=== PATIENT | female | born 1985 | race Caucasian/White ===

== ENCOUNTER 2019-04-13 11:04 | Emergency (ER) | payer MEDICAID ==
[2019-04-13] MEDS ORDERED: Cyclobenzaprine TAB* 10 MG PO ONE (11:34)
[2019-04-13] MEDS ORDERED: Ibuprofen TAB* 600 MG PO ONE (11:34)
--- NOTE | 2019-04-13 11:36 | ED ---
Upper Extremity Pain - HPI Summary HPI Summary: 33-year-old female presents with left shoulder pain for the past couple years. She states that she was seeing an orthopedist in [place] and had a bunch testing done so she knows she has a pinched nerve and a torn rotator cuff. she was getting steroid injections every 6 months. States that she moved into the area and does not currently have an orthopedist. She states she has not been taking anything for the pain. States she was previously on Percocet and ibuprofen. She denies any new injury. She has occasionally numbness and tingling down her left arm that is not new. She denies any recent change in her symptoms. - History of Current Complaint Chief Complaint: EDSmary bethlderCGuru Stated Complaint: SHOULER PAIN Time Seen by Provider: 04/13/19 11:26 - Allergies/Home Medications Allergies/Adverse Reactions: Allergies Allergy/AdvReac Type Severity Reaction Status Date / Time No Known Allergies Allergy Verified 04/13/19 11:10 PMH/Surg Hx/FS Hx/Imm Hx Endocrine/Hematology History: Denies: Hx Anticoagulant Therapy Respiratory History: Denies: Hx Asthma Infectious Disease History: No Infectious Disease History: Denies: Traveled Outside the [place] in Last 30 Days - Family History Known Family History: Positive: Non-Contributory - Social History Alcohol Use: Occasionally Substance Use Type: Reports: None Smoking Status (MU): Heavy Every Day Tobacco Smoker Review of Systems Negative: Fever Negative: Chest Pain Negative: Shortness Of Breath Positive: Myalgia - left shoulder pain All Other Systems Reviewed And Are Negative: Yes Physical Exam Triage Information Reviewed: Yes Vital Signs On Initial Exam: Initial Vitals Temp Pulse Resp BP Pulse Ox 97.8 F 78 16 136/94 98 04/13/19 11:08 04/13/19 11:08 04/13/19 11:08 04/13/19 11:08 04/13/19 11:08 Vital Signs Reviewed: Yes Appearance: Positive: Well-Appearing Skin: Positive: Warm, Dry Head/Face: Positive: Normal Head/Face Inspection Eyes: Positive: Normal, Conjunctiva Clear ENT: Positive: Pharynx normal Respiratory/Lung Sounds: Positive: Clear to Auscultation, Breath Sounds Present Cardiovascular: Positive: Normal, RRR Musculoskeletal: Positive: Limited @ - able to raise shoulder to 90 but unable to lift left shoulder above 90, unable to bring arm across back, Other - good pulses, tenderness over left shoulder Neurological: Positive: Normal Psychiatric: Positive: Normal Procedures - Sedation Patient Received Moderate/Deep Sedation with Procedure: No Diagnostics - Vital Signs Vital Signs Temp Pulse Resp BP Pulse Ox 04/13/19 11:08 97.8 F 78 16 136/94 98 - Laboratory Lab Statement: Any lab studies that have been ordered have been reviewed, and results considered in the medical decision making process. Re-Evaluation - Re-Evaluation First Eval Re-Evaluation Time: 11:59 Comment: patient requesting pain meds which explained can not write for chronic pain Course/Dx - Course Course Of Treatment: 33-year-old female presents with left shoulder pain for the past couple years. She states that she was seeing an orthopedist in [place] and had a bunch testing done so she knows she has a pinched nerve and a torn rotator cuff. she was getting steroid injections every 6 months. States that she moved into the area and does not currently have an orthopedist. She states she has not been taking anything for the pain. States she was previously on Percocet and ibuprofen. She denies any new injury. She has occasionally numbness and tingling down her left arm that is not new. She denies any recent change in her symptoms. On exam has good strength in her arm. Tenderness over her left shoulder. Neurovascular intact. unable to raise arm above 90 or behind her back. Will prescribe Flexeril and ibuprofen for pain. gave referral to orthopedic. Patient understands and agrees the plan. - Diagnoses Differential Diagnosis/HQI/PQRI: Positive: Fracture (Closed), Strain, Sprain Provider Diagnoses: Left shoulder pain Discharge ED - Sign-Out/Discharge Documenting (check all that apply): Patient Departure - Discharge Plan Condition: Good Disposition: HOME Prescriptions: Cyclobenzaprine TAB* [Flexeril 10 MG TAB*] 10 mg PO TID PRN #21 tab PRN Reason: Pain - Severe Ibuprofen TAB* [Motrin TAB* 600 MG] 600 mg PO Q6H PRN #30 tab PRN Reason: Pain - Moderate Patient Education Materials: Shoulder Pain (ED) Referrals: Howie Dsouza MD [Medical Doctor] - [facility] [facility] [Outside] Additional Instructions: Take Tylenol and ibuprofen every 6 hours as needed for pain take flexeril up to three times a day for pain Ice/heat establish care with primary Follow up with ortho Return to ED if develop any new or worsening symptoms - Billing Disposition and Condition Condition: GOOD Disposition: Home
[2019-04-13] MEDS ORDERED: Ketorolac INJ* 30 MG/ML 1 ML VIAL IM ONE (11:56)
[2019-04-13 12:28] VITALS: BP 135/90
== END 2019-04-13 12:25 | disposition home or self-care (01) ==
LOC: ED 11:04
DX: M25.512 Pain in left shoulder (principal); F17.210 Nicotine dependence, cigarettes, uncomplicated
CPT/HCPCS: 96372; 99282; A9270-GY; J1885